=== PATIENT | male | born 1950 | race Caucasian/White ===

== ENCOUNTER → 2018-09-18 13:23 | Outpatient (CLI) | payer MEDICARE, BC ==
[~2018-09-18 13:23] MED LIST: BAYER CHEWABLE81 MG PO; BETAPACE 120 M120 MG PO; CALAN120 MG PO; CARDURA2 MG PO; COZAAR100 MG PO; ELIQUIS5 MG PO; HCTZ25 MG PO; MIRAPEX0.5 MG PO; NORVASC10 MG PO; PRAVASTATIN SOD10 MG PO
== END | disposition home or self-care (01) ==
LOC: D.CT 13:23
DX: I71.2 Thoracic aortic aneurysm, without rupture (principal)

== ENCOUNTER → 2018-09-22 15:02 | Outpatient (CLI) | payer MEDICARE, BC | END | disposition home or self-care (01) | LOC: D.CT 15:02 | PROVIDERS: ATTEND Thoracic Surgery (Cardiothoracic Vascular Surgery) | DX: I71.4 Abdominal aortic aneurysm, without rupture (principal) ==

== ENCOUNTER → 2018-11-04 08:41 | Outpatient (CLI) | payer MEDICARE, BC | END | disposition home or self-care (01) | LOC: D.HCCARDIO 08:41 | PROVIDERS: ATTEND Internal Medicine Cardiovascular Disease | DX: I48.91 Unspecified atrial fibrillation (principal) ==

== ENCOUNTER 2018-12-03 11:07 | Outpatient (CLI) | payer MEDICARE, BC ==
--- NOTE | ~2018-12-03 | HEMODYNAMI ---
PATIENT:MONSE HANLEY GENE MEDICAL RECORD: [id number] : 50 LOCATION:D.CAT ADMISSION DATE: 12/03/18 Generatedon:12/03/201813:16 Patient name: MONSE HANLEY Patient #: [id number] SSN: : 1950 Date of study: 12/03/2018 Page: Of Hemodynamic Procedure Report Patient Data Patient Demographics Procedure consent was obtained First Name: MONSE Gender: Male Last Name: TALON : 1950 [facility] Initial: GENE Age: 68 year(s) Patient #: [id number] Race: Unknown Additional ID: [id number] Contact details [address]: [address] [place] [address] [address] State: [place] City: [place] Zip code: [address] Past Medical History Allergies Allergen Reaction Date Comments Reported Other allergy 12/03/2018 E[facility] [place] Admission Admission Data Admission Date: 12/03/2018 Admission Time: 11:07 Admit Source: Other Lab Results Lab Result Date: 12/03/2018 Lab Result Time: 0:00 CBC Name Units Result Min Max Hematocrit % 40.3 -*(----)-- 42 54 Hemoglobin g/dl 14.1 --(*---)-- 13.5 17.5 Procedure Procedure Types Cath Procedure Diagnostic Procedure Cardioversion External Procedure Description Procedure Date Procedure Date: 12/03/2018 Procedure Start Time: 13:07 Procedure End Time: 13:14 Procedure Staff Name Function Juan Cardenas MD Performing Physician Rock Eugene RN Nurse Jose Sifuentes RN Bath Attendant Tr Walls CRNA Additional personnel Nikhil Real RT Monitor Procedure Data Cath Procedure Fluoroscopy Diagnostic fluoroscopy Total fluoroscopy Time: 0 time: 0 min min Contrast Material Contrast Material Type Amount (ml) Isovue 300 0 Estimated blood loss: 0 ml Procedure Complications No complications Procedure Medications Medication Administration Route Dosage 0.9% NaCl I.V. 100 ml/hr Oxygen etCO2 Nasal cannula 4 l/min Refer to Anesthesia Notes for Sedation Medications Hemodynamics Rest Pre Cath Intra NCS Post Cath Vital Signs Time Heart Resp SPO2 etCO2 NIBP (mmHg) Rhythm Pain Sedation Rate (ipm) (%) (mmHg) Status Level (bpm) 13:04:25 115 21 95 23.3 143/103(117) A-Fib 0 (11) 10(A) , No pain 13:08:43 90 12 92 27.1 115/95(104) A-Fib 0 (11) 8(A) , No pain 13:12:49 62 18 93 30.1 116/77(87) NSR 0 (11) 8(A) , No pain Medications Time Medication Route Dose Verified Delivered Reason Notes Effective ness by by 13:06:53 0.9% NaCl I.V. 100 Rock Rock Per ml/hr Jabier Eugene physician RN RN 13:07:08 Oxygen etCO2 4 Rock Rock for low Nasal l/min Lorigan Lorigan 02 sats cannula RN RN 13:07:16 Refer to Rock Rock for Anesthesia Lorigan Jabier sedation Notes for RN RN Sedation Medications Procedure Log Time Note 12:30:42 Jose Sifuentes RN sent for patient. Start room use. 12:42:50 Informed consent obtained and on chart 12:42:53 Admit Source: Other 12:57:48 Time tracking: Regular hours (M-F 7:00 - 5:00) 12:57:56 Plan of Care:Hemodynamics will remain stable., Cardiac rhythm will remain stable., Comfort level will be maintained., Respiratory function will remain adequate., Patient/ family verbilizes understanding of procedure., Procedure tolerated without complication., Recovers from procedure without complications.. 12:58:00 Patient received from Pre/Post Procedure Room to CCL 2 Alert and oriented. Tansferred to table in Supine position. 12:58:01 Warm blankets applied, and shauna hugger turned on for patient comfort. 12:58:01 Correct patient and procedure confirmed by team. 12:58:02 ECG and BP/O2 sat monitors applied to patient. 12:58:04 Pre-procedure instructions explained to patient. 12:58:05 Pre-op teaching completed and patient verbalized understanding. 12:58:06 Family in waiting room. 12:58:08 Patient NPO since Midnight. 12:59:05 Patient allergic to Other allergylasix,PCN 13:00:13 Tr Walls CRNA present and monitoring patient for TIVA. 13:03:14 Vital chart was started 13:04:10 Is the patient allergic to Iodine/contrast media? No. 13:04:11 Is patient on blood thinner?Yes 13:04:14 Rhythm: atrial fibrillation 13:04:14 ACC The patient was administered the following blood thiners within the last 24 hours: Eliquis 13:04:15 Patient diabetic? No. 13:04:18 Previous problem with sedation/anesthesia? No ? 13:04:19 Snore? Yes 13:04:20 Sleep apnea? Yes 13:04:20 Deviated septum? No 13:04:21 Opens mouth fully? Yes 13:04:22 Sticks out tongue? Yes 13:04:23 Airway obstruction? No ? 13:04:25 Dentures? No ? 13:04:28 Patient pain scale 0/10 ?. 13:04:36 IV patent on arrival in left forearm with 0.9% NaCl at [facility]. 13:05:59 Lab Result : Hemoglobin 14.1 g/dl 13:05:59 Lab Result : Hematocrit 40.3 % 13:06:01 Lab results completed and on chart. 13:06:02 Alarms reviewed by Randal Oliveros 13:06:03 Physician arrived 13:06:04 --------ALL STOP TIME OUT------ 13:06:06 Final Timeout: patient, procedure, and site verified with staff and physician. All members of the team are in agreement. 13:06:14 Fire Safety Assessment: B--The operative or invasive procedure is being performed above the xiphoid process or in the oropharynx., C--Open oxygen or nitrous oxide is being used. 13:06:17 Physical assessment completed. ASA score P 3 - A patient with severe systemic disease as per Juan Cardenas MD. 13:06:21 Sedation plan: TIVA Medication:Propofol 13:06:52 Quick Combo opened to sterile field. 13:06:53 0.9% NaCl 100 ml/hr I.V. was administered by Rock Eugene RN; Per physician; 13:06:59 Quick combo pads placed on patients chest and back. 13:07:07 Procedure started. 13:07:08 Oxygen 4 l/min etCO2 Nasal cannula was administered by Rock Lorigan RN; for low 02 sats; 13:07:08 Full Disclosure recording started 13:07:16 Refer to Anesthesia Notes for Sedation Medications was administered by Rock Eugene RN; for sedation; 13:07:58 Defibrillator synced and charged to 200 Joules. 13:08:03 Shock delivered. 13:10:10 Defibrillator synced and charged to 300. Joules. 13:10:18 Shock delivered. 13:10:51 Patient cardioverted to sinus rhythm . 13:10:55 Procedure ended.(Physican Out) 13:12:20 Fluoroscopy time 00.00 minutes. 13:12:22 Contrast amount:Isovue 300 0ml. 13:13:02 Post-procedure physical assessment completed. ASA score P 3 - A patient with severe systemic disease as per Juan Cardenas MD. 13:13:04 Post procedure rhythm: sinus rhythm 13:13:46 Estimated blood loss: 0 ml 13:13:48 Post procedure instruction explained to patient.Patient verbalizes understanding. 13:13:48 Patient needs reinforcement of post procedure teaching. 13:14:03 Procedure and supply charges have been captured, reviewed, submitted and are correct. 13:14:14 Procedure Complication : No complications 13:14:16 Vital chart was stopped 13:14:17 See physician's report for complete and final results. 13:14:18 Report given to Pre/Post Procedure Room. 13:14:21 Patient transfered to Pre/Post Procedure Room with Stretcher. 13:14:23 Procedure ended. 13:14:23 Full Disclosure recording stopped 13:14:31 End room use (Document Last) Device Usage Item Manufacture Quantity Catalog Hospital Part Current Minimal Lot# / Name Number Charge Number Stock [facility] [place]# Code [employer] 1 [id number] Combo Signature Audit Forest Stage Time Signature Unsigned Intra-Procedure 12/03/2018 iNkhil Real 1:16:38 PM RT(R) Signatures Monitor : Nikhil Real RT Signature : Date : Time : [id number] [place] [address]
[2018-12-03] MEDS ORDERED: BETAPACE 120 M120 MG PO (11:31)
[2018-12-03] MEDS ORDERED: ELIQUIS5 MG PO (11:31)
[2018-12-03] MEDS ORDERED: HCTZ25 MG PO (11:32)
[2018-12-03] MEDS ORDERED: PRAVASTATIN SOD10 MG PO (11:32)
[2018-12-03] MEDS ORDERED: CARDURA2 MG PO (11:32)
[2018-12-03] MEDS ORDERED: NORVASC10 MG PO (11:33)
[2018-12-03] MEDS ORDERED: COZAAR100 MG PO (11:34)
[2018-12-03] MEDS ORDERED: MIRAPEX0.5 MG PO (11:34)
[2018-12-03] MEDS ORDERED: CALAN120 MG PO (11:36)
[2018-12-03] MEDS ORDERED: BAYER CHEWABLE81 MG PO (11:36)
[2018-12-03 11:52] VITALS: BP 130/99; BMI 45.6
[2018-12-03 11:58] LABS: BASOPHILS 0.1 % (0-2); EOSINOPHILS 2.1 % (0-7); HEMATOCRIT 40.3 % (42.0-54.0); HEMOGLOBIN 14.1 g/dL (13.5-17.5); IMMATURE GRANULOCYTES 0.3 % (0-5); LYMPHOCYTES 19.3 % (15-50); MCH 29.8 pg (26.0-34.0); MCV 85.2 fL (80.0-100.0); MEAN PLATELET VOLUME 9.7 fL (7.4-10.4); MONOCYTES 10.3 % (2-11); NEUTROPHILS 67.9 % (40-80); PLATELET COUNT 150 10x3/uL (130-400); RBC 4.73 10x6/uL (4.20-6.10); RDW 13.9 % (11.5-14.5); WBC 7.5 10x3/uL (4.8-10.8)
[2018-12-03 12:10] LABS: CALC OSMOLALITY 271 mosm/kg (275-300); CALCIUM 9.3 mg/dL (8.5-10.1); CARBON DIOXIDE 28.2 mmol/L (21.0-32.0); CHLORIDE - SERUM 100 mmol/L (98-107); CREATININE - SERUM 0.8 mg/dL (0.6-1.3); GLUCOSE 98 mg/dL (74-106); POTASSIUM - SERUM 3.4 mmol/L (3.5-5.1); SODIUM 136 mmol/L (136-145); UREA NITROGEN 13 mg/dL (7-18); eGFR NON AFRICAN AMERICAN > 90 mL/min (90-120)
[2018-12-03 12:18] LABS: INR 1.39 (0.85-1.17); PROTIME 16.5 SECONDS (11.6-15.0)
--- NOTE | 2018-12-03 13:41 | NUR ---
RECEIVED PT FROM HEAD WAITRESS. PT IS ALERT AND DENIES ANY C/O CHEST PAIN OR NAUSEA. SLIGHT REDNESS TO CARDIOVERSION PAD SITES, NO OPEN AREAS OR BLISTERS TO SITES. DR LOCO HAS ROUNDED ON PT. AT BEDSIDE, SANDWICH AND PO FLUIDS SERVED. NSR, RATE IS 61. BP IS 132/78
--- NOTE | 2018-12-03 13:54 | NUR ---
PT HAS TOLERATED DIET AND PO FLUIDS WITH NO C/O NAUSEA. NSR, DENIES ANY C/O CHEST PAIN. RESP WTIH EASE ON ROOM AIR. PT SITTING UP IN BED, WATCHING TV, AT BEDSIDE.
--- NOTE | 2018-12-03 15:00 | NUR ---
1425 PT DENIES ANY C/O. INSINUS RYTHM WITH NO C/O CHEST DISCOMFORT. PT IS ALERT AND WITHOUT ANY C/O. IV DC'D WITH CATH INTACT. DC INSTRUCTIONS HAVE BEEN REVIEWED WITH PT WHO VERBALIZES UNDERSTANDING. PT DRESSING FOR DC TO HOME. 1440 PT HAS DRESSED FOR DC. PT IS ALERT AND DENIES ANY C/O. PT ESCORTED TO PRIVATE AUTO VIA WC BY NURSE WITH DRIVING HIM HOME.
== END 2018-12-03 14:40 | disposition home or self-care (01) ==
LOC: D.CATH 11:07
PROVIDERS: ATTEND Internal Medicine Cardiovascular Disease
DX: I48.91 Unspecified atrial fibrillation (principal); Z01.812 Encounter for preprocedural laboratory examination

== ENCOUNTER → 2019-10-30 13:09 | Outpatient (CLI) | payer MEDICARE, BC | END | disposition home or self-care (01) | LOC: D.HCCECHO 13:09 | PROVIDERS: ATTEND Internal Medicine Cardiovascular Disease | DX: I48.91 Unspecified atrial fibrillation (principal) ==